=== PATIENT | female | born 1950 | race Caucasian/White ===

== ENCOUNTER 2019-03-09 09:56 | Day surgery (SDC) | payer MEDICARE, MEDICAID ==
[2019-03-08 11:07] LABS: APPEARANCE,URINE CLEAR; BILIRUBIN,URINE NEGATIVE (NEGATIVE); COLOR,URINE STRAW; GLUCOSE, URINE NEGATIVE (NEGATIVE); KETONES,URINE NEGATIVE (NEGATIVE); LEUKOCYTE ESTERASE,URINE NEGATIVE (NEGATIVE); NITRITE,URINE NEGATIVE (NEGATIVE); PROTEIN,URINE NEGATIVE (NEGATIVE); URINE SPECIFIC GRAVITY 1.006; UROBILINOGEN,URINE NEGATIVE mg/dL (<2.0)
[2019-03-08 11:32] LABS: ABSOLUTE EOSINOPHILS # (AUTO) 0.1 10^3/uL (0.0-0.6); ABSOLUTE LYMPHOCYTES (AUTO) 2.2 10^3/uL (0.5-4.7); ABSOLUTE MONOCYTES (AUTO) 0.4 10^3/uL (0.1-1.4); ABSOLUTE NEUT (AUTO) 2.7 10^3/uL (1.7-8.2); BASOPHILS % (AUTO) 0.8 % (0-2); HEMATOCRIT 46.7 % (36.0-47.0); HEMOGLOBIN 15.7 g/dL (12.0-15.5); LYMPHOCYTES % (AUTO) 41.7 % (13-45); MEAN CORPUSCULAR HGB CONC 33.5 g/dL (32.0-36.0); MEAN CORPUSCULAR VOLUME 90 fl (80-97); MONOCYTES % (AUTO) 6.7 % (3-13); PLATELET COUNT 294 10^3/uL (150-450); RED BLOOD COUNT 5.22 10^6/uL (3.72-5.28); RED CELL DISTRIBUTION WIDTH 13.6 % (11.5-14.0); SEGMENTED NEUTROPHILS % (AUTO) 49.8 % (42-78); TOTAL CELLS COUNTED % (AUTO) 100 %; WHITE BLOOD COUNT 5.3 10^3/uL (4.0-10.5)
[2019-03-08 11:41] LABS: URINE AMPHETAMINES SCREEN NEGATIVE; URINE BARBITURATES SCREEN NEGATIVE; URINE COCAINE SCREEN NEGATIVE; URINE MARIJUANA (THC) SCREEN NEGATIVE; URINE METHADONE SCREEN NEGATIVE; URINE PHENCYCLIDINE SCREEN NEGATIVE
[2019-03-08 13:01] LABS: URINE BENZODIAZEPINES SCREEN UNCONFIRMED POSITIVE
[~2019-03-09 09:56] MED LIST: CEFAZOLIN 1 GM/D5W RTU 1 GM/50 ML RTUPB IV PRN; FENTANYL CITRATE INJ/PF 100 MCG/2 ML AMPUL ONE; LACTATED RINGERS 1000 ML IV PRN; LIDOCAINE 0.5% INJ-PF (5 MG/ML) 50 ML SDV SUBCUT PRN; PROPOFOL INJ 200 MG/20 ML VIAL IV ONE
[2019-03-09] MEDS ORDERED: CEFAZOLIN 1 GM/D5W RTU 1 GM/50 ML RTUPB IV ONE (10:22)
[2019-03-09] MEDS ORDERED: BUPIVACAINE HCL 0.25 % INJ/PF (2.5 MG/1 ML) 30 ML VIAL ONE ×2 (10:30→11:07)
[2019-03-09] MEDS ORDERED: MIDAZOLAM 2 MG/2 ML INJ ONE (11:18)
[2019-03-09] MEDS ORDERED: MEPERIDINE HCL/PF INJ 25 MG/1 ML DISP.SYRIN IV PRN (12:24)
[2019-03-09] MEDS ORDERED: OXYCODONE-ACETAMINOPHEN 5-325 MG TABLET PO PRN ×2 (12:24)
[2019-03-09] MEDS ORDERED: FENTANYL CITRATE INJ/PF 100 MCG/2 ML AMPUL IV PRN ×2 (12:24)
[2019-03-09] MEDS ORDERED: DIPHENHYDRAMINE HCL 50 MG/ML VIAL IV PRN (12:24)
[2019-03-09] MEDS ORDERED: MORPHINE SULFATE 10 MG/ML INJ IV PRN (12:24)
[2019-03-09] MEDS ORDERED: PROMETHAZINE HCL INJ 25 MG/1 ML VIAL IV PRN (12:24)
[2019-03-09] MEDS ORDERED: FENTANYL CITRATE INJ/PF 100 MCG/2 ML AMPUL ONE ×2 (12:27→13:28)
--- NOTE | 2019-03-09 13:10 | OPERATIVE REPORT E ---
Operative Report NAME: JENIFER KRAMER : 1950 AGE: 68Y DATE OF SURGERY: 03/09/2019 ROOM: PREOPERATIVE DIAGNOSIS: POSTMENOPAUSAL BLEEDING, ABNORMAL PAP, AND PELVIC MASS. POSTOPERATIVE DIAGNOSIS: POSTMENOPAUSAL BLEEDING, ABNORMAL PAP, PELVIC MASS, AND FIBROIDS. OPERATION: Diagnostic hysteroscopy, MyoSure, cervical biopsies and diagnostic laparoscopy. SURGEON: Ana Laura JADE M.D. ESTIMATED BLOOD LOSS: Less than 5 mL. TISSUE REMOVED OR ALTERED: Endometrium and cervical biopsies. PROCEDURE: The patient was placed in the dorsal lithotomy position, prepped and draped in usual sterile fashion. Speculum placed in the cervix. Uterus visualized and grasped with single-tooth tenaculum and sounded to a depth of 11 cm. Cervix dilated and the hysteroscope was placed and there was what appeared to be either a polyp or submucous fibroids posterior. MyoSure was used and these were removed. A sharp curettage was performed and following that, random cervical biopsies were done. The [place] tenaculum was placed and the single-tooth tenaculum was removed. The speculum was removed. The bladder was drained. Attention turned to the abdomen where a subumbilical similar incision was made. The trocar was introduced for insufflation of the abdomen and introduction of the laparoscope. Uterus appeared to be large and nodular but both ovaries appeared to be normal. There were some adhesions of the left adnexal wall from the left adnexa. No other abnormalities were noted. Laparoscope was removed and abdomen deflated. Trocar sleeves removed. The incision closed with 0-Vicryl for the fascia, 4-0 Vicryl subcutaneous. The procedure was then terminated. Patient tolerated it well and was taken to recovery in good condition. DICTATING PHYSICIAN: Ana Laura JADE M.D. [id number] PHY#: [id number] ID: [id number] JOB#: [id number] ACCT: [id number] cc:Ana Laura JADE M.D. >
[2019-03-09] MEDS: FENTANYL CITRATE INJ/PF 100 MCG/2 ML AMPUL IV PRN ×3 (13:30→13:41)
[2019-03-09] MEDS ORDERED: LIDOCAINE 2% INJ-PF (20 MG/ML) 2 ML AMPUL ONE (14:09)
[2019-03-09] MEDS ORDERED: ONDANSETRON HCL INJ/PF 4 MG/2 ML SDV ONE (14:09)
[2019-03-09] MEDS ORDERED: NEOSTIGMINE METHYLSULFATE 10 MG/10 ML VIAL ONE (14:09)
[2019-03-09] MEDS ORDERED: GLYCOPYRROLATE 1 MG/5 ML VIAL ONE (14:09)
[2019-03-09] MEDS ORDERED: KETOROLAC TROMETHAMINE 60 MG/2 ML SDV ONE (14:09)
[2019-03-09] MEDS ORDERED: OXYCODONE-ACETAMINOPHEN 5-325 MG TABLET ONE (14:28)
--- NOTE | 2019-03-09 14:33 | EKG REPORT ---
SEVERITY:- ABNORMAL ECG - SINUS RHYTHM LEFT BUNDLE BRANCH BLOCK : Confirmed by: Karen Britt 09-Mar-2019 14:32:59
[2019-03-09] MEDS ORDERED: SCOPOLAMINE HYDROBROMIDE 1.5 MG PATCH.TD72 ONE (14:44)
[2019-03-09 16:44] VITALS: BP 149/56
== END 2019-03-09 15:50 | disposition home or self-care (01) ==
LOC: OROUT 09:56
PROVIDERS: ATTEND Obstetrics & Gynecology Gynecology
DX: N84.0 Polyp of corpus uteri (principal); D25.0 Submucous leiomyoma of uterus; N95.0 Postmenopausal bleeding; I10 Essential (primary) hypertension; E78.5 Hyperlipidemia, unspecified; F17.210 Nicotine dependence, cigarettes, uncomplicated; Z79.899 Other long term (current) drug therapy; K66.0 Peritoneal adhesions (postprocedural) (postinfection)
CPT/HCPCS: 93005; 86900; 86901; 36415 ×2; 86850; 84132; 85025; 81001; 80307; 88305 ×2; 93010; 00840; 49320; 58561; 57500; J2250; J0690; J1885; J3010; J2710; A9270; J2405; J2704; J3490 ×2; 840

== ENCOUNTER 2020-01-09 05:22 | Day surgery (SDC) | payer MEDICARE, MEDICAID ==
[2020-01-05 11:29] LABS: APPEARANCE,URINE CLEAR; BILIRUBIN,URINE NEGATIVE (NEGATIVE); COLOR,URINE YELLOW; GLUCOSE, URINE NEGATIVE (NEGATIVE); KETONES,URINE NEGATIVE (NEGATIVE); LEUKOCYTE ESTERASE,URINE NEGATIVE (NEGATIVE); NITRITE,URINE NEGATIVE (NEGATIVE); PROTEIN,URINE NEGATIVE (NEGATIVE); UROBILINOGEN,URINE NEGATIVE mg/dL (<2.0)
[2020-01-05 12:01] LABS: HEMATOCRIT 50.3 % (36.0-47.0); HEMOGLOBIN 17.2 g/dL (12.0-15.5); MEAN CORPUSCULAR HEMOGLOBIN 30.4 pg (27.0-33.4); MEAN CORPUSCULAR HGB CONC 34.2 g/dL (32.0-36.0); MEAN CORPUSCULAR VOLUME 89 fl (80-97); PLATELET COUNT 327 10^3/uL (150-450); RED BLOOD COUNT 5.66 10^6/uL (3.72-5.28); RED CELL DISTRIBUTION WIDTH 13.5 % (11.5-14.0); WHITE BLOOD COUNT 6.5 10^3/uL (4.0-10.5)
[2020-01-05 12:21] LABS: ALKALINE PHOSPHATASE 75 U/L (38-126); ANION GAP 11 (5-19); ASPARTATE AMINO TRANSFERASE 24 U/L (14-36); BILIRUBIN,TOTAL 0.6 mg/dL (0.2-1.3); BLOOD UREA NITROGEN 16 mg/dL (7-20); CALCIUM 10.5 mg/dL (8.4-10.2); CARBON DIOXIDE 26 mmol/L (22-30); CHLORIDE 96 mmol/L (98-107); GLUCOSE 104 mg/dL (75-110); POTASSIUM 4.9 mmol/L (3.6-5.0); TOTAL PROTEIN 8.1 g/dL (6.3-8.2)
--- NOTE | 2020-01-05 13:31 | RADIOLOGY REPORT (SQ) ---
EXAM DESCRIPTION: CHEST PA/LATERAL IMAGES COMPLETED DATE/TIME: 01/05/2020 12:52 pm REASON FOR STUDY: PRE-OP COMPARISON: None. EXAM PARAMETERS: NUMBER OF VIEWS: two views TECHNIQUE: Digital Frontal and Lateral radiographic views of the chest acquired. RADIATION DOSE: NA LIMITATIONS: none FINDINGS: LUNGS AND PLEURA: No opacities, masses or pneumothorax. No pleural effusion. MEDIASTINUM AND HILAR STRUCTURES: No masses or contour abnormalities. HEART AND VASCULAR STRUCTURES: Heart normal size. No evidence for failure. BONES: No acute findings. HARDWARE: None in the chest. OTHER: No other significant finding. IMPRESSION: NO SIGNIFICANT RADIOGRAPHIC FINDING IN THE CHEST. TECHNICAL DOCUMENTATION: JOB ID: [id number] 2010 [employer]- All Rights Reserved Reading location - IP/workstation name: [email or web address]
--- NOTE | 2020-01-05 17:26 | EKG REPORT ---
SEVERITY:- ABNORMAL ECG - SINUS RHYTHM LEFT BUNDLE BRANCH BLOCK : Confirmed by: Deborah Diaz MD 05-Jan-2020 17:25:24
[~2020-01-09 05:22] MED LIST changes: -FENTANYL CITRATE INJ/PF 100 MCG/2 ML AMPUL ONE; -PROPOFOL INJ 200 MG/20 ML VIAL IV ONE; +RINGERS SOLUTION,LACTATED 1,000 ML IV PRN
[2020-01-09] MEDS ORDERED: CEFAZOLIN 1 GM/D5W RTU 1 GM/50 ML RTUPB IV ONE (06:03)
[2020-01-09] MEDS ORDERED: MIDAZOLAM 2 MG/2 ML INJ ONE (07:00)
[2020-01-09] MEDS ORDERED: FENTANYL CITRATE INJ/PF 250 MCG/5 ML AMPULE ONE (07:00)
[2020-01-09] MEDS ORDERED: PROPOFOL INJ 200 MG/20 ML VIAL IV ONE (07:00)
[2020-01-09] MEDS ORDERED: BUPIVACAINE HCL 0.25 % INJ/PF (2.5 MG/1 ML) 30 ML VIAL ONE (07:13)
--- NOTE | 2020-01-09 09:01 | Operative Report ---
Operative Report DATE OF SURGERY: 01/09/20 PREOPERATIVE DIAGNOSIS: Postmenopausal bleeding broad uterus POSTOPERATIVE DIAGNOSIS: Same OPERATION: Robotic assisted total hysterectomy BS and O SURGEON: GREY JADE ANESTHESIA: GA TISSUE REMOVED OR ALTERED: Uterus tubes and ovaries PROCEDURE: Patient placed in a dorsal lithotomy patient prepped and also fashion. V care w as placed per protocol speculum was removed. Attention turned to the abdomen where a supraumbilical incision was made trocar was introduced with insufflation abdomen and reduction of laparoscope which showed the uterus to have multiple fibroids but no other overt abnormalities noted. Second puncture made lateral on the right and a 5 trocar was introduced the third lateral on the left and a 5 introduced and an accessory port above the supra iliac crest on the right. Robot was docked in usual fashion. And using bipolar monopolar cautery the left infundibulopelvic then 5 divided distally continued down the broad ligament to the ascending branch of the uterine artery on the left. Procedure to be on the right. Bladder flap was created with sharp dissection. Nursing tubes and ovaries were then removed by using monopolar cautery in a circumferential manner around the vaginal ring. The vagina uterus was too large for the tech to remove the robot was undocked and the uterus was then removed with just manual traction. Cuff was closed using 2 -0 v lock.. Hemostasis was noted. She was turned to the abdomen which was reinflated the pelvis irrigated with normal saline hemostasis was noted. The abdomen deflated and trocar sleeves were removed the incision above the iliac crest was closed using 0 Vicryl for the fascia and 4 oh for the skin the umbilicus was closed in a similar fashion. And 2 punctures wounds were closed with 4 oh subcu. Patient is to remain clear of that procedure taken recovery room good condition.
[2020-01-09] MEDS ORDERED: DIPHENHYDRAMINE HCL 50 MG/ML VIAL IV PRN (09:03)
[2020-01-09] MEDS ORDERED: FENTANYL CITRATE INJ/PF 100 MCG/2 ML AMPUL IV PRN ×3 (09:03)
[2020-01-09] MEDS ORDERED: PROMETHAZINE HCL INJ 25 MG/1 ML VIAL IV PRN (09:03)
[2020-01-09] MEDS ORDERED: MEPERIDINE HCL/PF INJ 25 MG/1 ML DISP.SYRIN IV PRN (09:03)
[2020-01-09] MEDS ORDERED: FENTANYL CITRATE INJ/PF 100 MCG/2 ML AMPUL ONE (09:33)
[2020-01-09] MEDS ORDERED: HYDROMORPHONE HCL 2 MG TABLET PO PRN (09:50)
[2020-01-09] MEDS ORDERED: ONDANSETRON 4 MG TAB.RAPDIS PO PRN (09:50)
[2020-01-09] MEDS ORDERED: IBUPROFEN 800 MG TABLET PO SCH (14:00)
[2020-01-09] MEDS ORDERED: DEXAMETHASONE SOD PHOSPHATE INJ 4 MG/1 ML VIAL ONE (14:41)
[2020-01-09] MEDS ORDERED: ONDANSETRON HCL INJ/PF 4 MG/2 ML SDV ONE (14:41)
[2020-01-09] MEDS ORDERED: NEOSTIGMINE METHYLSULFATE 10 MG/10 ML VIAL ONE (14:41)
[2020-01-09] MEDS ORDERED: PHENYLEPHRINE HCL INJ/PF 10 MG/1 ML SDV ONE (14:41)
[2020-01-09] MEDS ORDERED: GLYCOPYRROLATE 1 MG/5 ML VIAL ONE (14:41)
[2020-01-09] MEDS ORDERED: SUCCINYLCHOLINE CHLORIDE INJ 200 MG/10 ML VIAL ONE (14:41)
[2020-01-09] MEDS ORDERED: KETOROLAC TROMETHAMINE 60 MG/2 ML SDV ONE (14:41)
[2020-01-09] MEDS ORDERED: ROCURONIUM BROMIDE INJ 50 MG/5 ML VIAL IV ONE (14:41)
[2020-01-09] MEDS ORDERED: LIDOCAINE 2% INJ-PF (20 MG/ML) 2 ML AMPUL ONE (14:41)
[2020-01-09 16:34] VITALS: BP 132/80
== END 2020-01-09 17:00 | disposition home or self-care (01) ==
LOC: OROUT 05:22 → 2N 10:25 → OROUT 17:00
PROVIDERS: ATTEND Obstetrics & Gynecology Gynecology
DX: N80.0 Endometriosis of uterus (principal); D25.1 Intramural leiomyoma of uterus; D25.2 Subserosal leiomyoma of uterus; D27.1 Benign neoplasm of left ovary; N83.8 Other noninflammatory disorders of ovary, fallopian tube and broad ligament; N95.0 Postmenopausal bleeding; N95.1 Menopausal and female climacteric states; I10 Essential (primary) hypertension; E78.5 Hyperlipidemia, unspecified; F17.210 Nicotine dependence, cigarettes, uncomplicated; Z79.899 Other long term (current) drug therapy; Z88.5 Allergy status to narcotic agent
CPT/HCPCS: 58571; S2900; 36415; 71046; 80053; 81001; 840; 84132; 85027; 86850; 86900; 86901; 87635; 88307; 93005; 93010; C9803; J0330; J0690; J1100; J1885; J2250; J2370; J2405; J2704; J2710; J3010; J3490